=== PATIENT | female | born 1995 | race Asian ===

== ENCOUNTER 2022-02-13 14:44 | Emergency (ER) | payer MEDICAID ==
[~2022-02-13] VITALS: Ht 160 cm; Wt 58.0 kg
[2022-02-13] MEDS ORDERED: LEVETIRACETAM 500MG PREMIX 100 ML IV ONE (15:30)
[2022-02-13 15:50] LABS: BASOPHILS % 0.5 % (0.0-2.0); EOSINOPHILS % 0.6 % (0.0-5.0); HEMATOCRIT. 40.1 % (36.0-48.0); HEMOGLOBIN. 13.6 g/dL (12.0-16.0); LYMPHOCYTES % 12.7 % (20.0-50.0); MEAN CORPUSCULAR HEMOGLOBIN 32.2 pg (28.0-32.0); MEAN CORPUSCULAR VOLUME 95.3 fL (81.0-99.0); MONOCYTES % 2.5 % (2.0-8.0); NEUTROPHILS % 83.7 % (40.0-76.0); RED BLOOD CELL COUNT 4.21 mill/uL (4.2-5.4); RED CELL DISTRIBUTION WIDTH 13.5 % (11.6-14.6)
[2022-02-13 16:01] LABS: CHLORIDE 106 mEq/L (98-107)
[2022-02-13 16:36] LABS: MEAN PLATELET VOLUME 10.1 fl (7.4-10.4); PLATELET 194 x1000/uL (130-400)
[2022-02-13] MEDS ORDERED: KEPP500 MT (17:35)
[2022-02-13 17:49] VITALS: BP 109/72
== END 2022-02-13 18:01 | disposition home or self-care (01) ==
LOC: ER 14:44
DX: G40.909 Epilepsy, unspecified, not intractable, without status epilepticus (principal)
CPT/HCPCS: 36415; 71045; 80053; 81025; 85025; 96365; 99284; J1953

== ENCOUNTER 2022-12-13 10:07 | Emergency (ER) | payer SELFPAY ==
[~2022-12-13] VITALS: Ht 162.6 cm; Wt 61.0 kg
[~2022-12-13 10:07] MED LIST: KEPP500 MT
[2022-12-13 10:11] VITALS: BP 106/60
[2022-12-13] MEDS ORDERED: SODIUM CHLORIDE 0.9% 1,000 ML IV ONE (10:30)
[2022-12-13] MEDS ORDERED: LEVETIRACETAM 1000MG PREMIX 100 ML IV ONE (10:30)
== END 2022-12-13 10:43 | disposition home or self-care (01) ==
LOC: ER 10:07
DX: R56.9 Unspecified convulsions (principal)
CPT/HCPCS: 99283; J7030